=== PATIENT | male | born 1980 | race African-American/Black ===

== ENCOUNTER 2018-12-01 11:05 | Emergency (ER) | payer OTHER ==
[~2018-12-01] VITALS: Ht 182.9 cm; Wt 102.1 kg
[~2018-12-01 11:05] MED LIST: AMOXICILLIN 50500 M1 PO; APAP/CODEINE ELI5 M1 OR; BACTRIM DS TAB1 EACH PO; NAPROSYN500 MG PO; NOHOMEMEDICATIONS; NORCO 5-325 TA1 EACH PO; PRILOSEC 20 MG20 MG PO; PRILOSEC40 MG PO; ZANTAC 150MG T150 M1 PO; ZOFRAN ODT4 MG PO
[2018-12-01] MEDS ORDERED: TESSALON PERLE100 MG PO (12:10)
[2018-12-01] MEDS ORDERED: MOBIC7.5 MG PO (12:13)
[2018-12-01 12:29] VITALS: BP 134/74
== END 2018-12-01 12:30 | disposition home or self-care (01) ==
LOC: ER 11:05
DX: J06.9 Acute upper respiratory infection, unspecified (principal); M54.5 Low back pain; K21.9 Gastro-esophageal reflux disease without esophagitis; F17.210 Nicotine dependence, cigarettes, uncomplicated

== ENCOUNTER 2018-12-15 15:07 | Emergency (ER) | payer OTHER ==
[~2018-12-15] VITALS: Ht 241.3 cm; Wt 104.3 kg
[~2018-12-15 15:07] MED LIST changes: +MOBIC7.5 MG PO; +TESSALON PERLE100 MG PO
[2018-12-15] MEDS ORDERED: TESSALON PERLE100 MG PO (16:21)
[2018-12-15] MEDS ORDERED: FLONASE 0.05%50 MCG NASAL (16:21)
[2018-12-15] MEDS ORDERED: SUDOGEST30 MG PO (16:21)
[2018-12-15 17:00] VITALS: BP 159/109
== END 2018-12-15 17:00 | disposition home or self-care (01) ==
LOC: ER 15:07
DX: J06.9 Acute upper respiratory infection, unspecified (principal); F17.210 Nicotine dependence, cigarettes, uncomplicated; K21.9 Gastro-esophageal reflux disease without esophagitis

== ENCOUNTER 2018-12-25 11:32 | Emergency (ER) | payer OTHER ==
[~2018-12-25] VITALS: Ht 188 cm; Wt 104.3 kg
[~2018-12-25 11:32] MED LIST changes: +FLONASE 0.05%50 MCG NASAL; +SUDOGEST30 MG PO
[2018-12-25 11:33] VITALS: BP 148/102
[2018-12-25] MEDS ORDERED: DOXYCYCLINE 10100 MG PO (12:25)
[2018-12-25] MEDS ORDERED: PROMETH-CODEIN 65 ML PO (12:25)
== END 2018-12-25 12:37 | disposition home or self-care (01) ==
LOC: ER 11:32
DX: J34.89 Other specified disorders of nose and nasal sinuses (principal); R05 Cough; K21.9 Gastro-esophageal reflux disease without esophagitis; F17.210 Nicotine dependence, cigarettes, uncomplicated

== ENCOUNTER 2019-07-05 10:12 | Emergency (ER) | payer OTHER ==
[~2019-07-05] VITALS: Ht 188 cm; Wt 106.6 kg
[~2019-07-05 10:12] MED LIST changes: +DOXYCYCLINE 10100 MG PO; +PROMETH-CODEIN 65 ML PO
[2019-07-05 11:43] LABS: HEMATOCRIT 43.7 % (42.0-52.0); HEMOGLOBIN 13.9 gm/dL (14.0-18.0); MCH 23.5 pg (26.0-34.0); MCHC 31.8 g/dL (28.0-37.0); MCV 73.9 fL (80.0-100.0); RBC 5.9 mil/uL (4.50-6.00); RDW 15.3 % (10.5-14.5); WBC 6.2 thou/uL (4.0-11.0)
[2019-07-05 11:59] VITALS: BP 182/116
== END 2019-07-05 12:07 | disposition home or self-care (01) ==
LOC: ER 10:12
PROVIDERS: Physician Assistant
DX: R21 Rash and other nonspecific skin eruption (principal); K21.9 Gastro-esophageal reflux disease without esophagitis; F17.210 Nicotine dependence, cigarettes, uncomplicated